=== PATIENT | female | born 1985 | race Caucasian/White ===

== ENCOUNTER 2021-05-04 09:00 | Inpatient (IN) | payer BC, OTHER ==
[2021-05-04 09:36] VITALS: BMI 36.6
[2021-05-04] MEDS ORDERED: hydrALAZINE 20 MG/ML VIAL SLOW IVP PRN ×2 (09:56→10:09)
[2021-05-04] MEDS ORDERED: Betamet Acet/Betamet Na Ph 30 MG/5 ML VIAL ONE (10:09)
[2021-05-04] MEDS ORDERED: Acetaminophen 500 MG TAB PO PRN (10:09)
[2021-05-04] MEDS ORDERED: Penicillin G Potassium 5 MILL.UNITS in Sodium Chloride 0.9% 100 ML IVPB SCH (10:15)
[2021-05-04] MEDS ORDERED: Betamet Acet/Betamet Na Ph 30 MG/5 ML VIAL IM SCH ×2 (10:15→22:20)
[2021-05-04] MEDS ORDERED: NIFEdipine 10 MG CAP PO SCH (10:30)
[2021-05-04 11:01] LABS: Hemoglobin 10.3 g/dL (12.0-15.5); Mean Corpuscular HGB CONC 30.7 g/dL (32.0-36.0); Mean Corpuscular Hemoglobin 24.6 pg (27.0-33.0); Mean Corpuscular Volume 80.1 fl (81.6-98.3); Mean Platelet Volume 10.6 fl (7.4-10.4); Platelet Count 280 10x3/uL (150-450); RBC Distribution Width 16.7 % (11.5-14.5); Red Blood Cell (RBC) Count 4.18 10x6/uL (3.90-5.03); White Blood Cell (WBC) Count 10.5 10x3/uL (3.5-10.5)
[2021-05-04] MEDS ORDERED: Morphine 10 MG/ML VIAL SLOW IVP SCH (12:00)
[2021-05-04] MEDS ORDERED: Promethazine HCl 25 MG/ML VIAL IM SCH (12:00)
[2021-05-04] MEDS ORDERED: Fentanyl 2 mcg/Bup 0.1% Cadd 100 ML ONE (12:11)
[2021-05-04] MEDS: Ondansetron PF 4 MG/2 ML Vial IVP PRN ×2 (12:52→19:58)
[2021-05-04] MEDS ORDERED: Acetaminophen 325 MG TAB PO PRN (12:55)
[2021-05-04] MEDS ORDERED: Ondansetron PF 4 MG/2 ML Vial IVP PRN (12:55)
[2021-05-04] MEDS ORDERED: Lactated Ringer's 500 ML IV PRN (12:55)
[2021-05-04] MEDS ORDERED: Hydrocerin (Eucerin) Cream 120 gm Jar TOP PRN (12:55)
[2021-05-04] MEDS ORDERED: Promethazine HCl 25 MG/ML VIAL IM PRN (12:55)
[2021-05-04] MEDS ORDERED: Naloxone HCl 0.4 mg/ml Vial IVP PRN ×2 (12:55)
[2021-05-04] MEDS ORDERED: Communication Order-Pharmacy FS SCH (13:00)
[2021-05-04] MEDS ORDERED: Fentanyl 2 mcg/Bupivacaine 0.1% Cassette 100 ML EPIDURAL SCH (13:00)
[2021-05-04] MEDS: ePHEDrine Sulfate 50 MG/10 ML VIAL SLOW IVP PRN (13:15)
[2021-05-04] MEDS: NIFEdipine 10 MG CAP PO SCH ×2 (13:15→17:32)
[2021-05-04] MEDS: Penicillin G 2.5 MILL.units 50 ML IVPB SCH ×2 (15:27→20:00)
[2021-05-04] MEDS: Fentanyl 2 mcg/Bupivacaine 0.1% Cassette 100 ML EPIDURAL SCH (21:07)
[2021-05-04] MEDS: diphenhydrAMINE 50 MG/ML VIAL IVP PRN (22:42)
[2021-05-05 00:06] LABS: SARS-CoV-2 PCR by NAA Not Detected (NotDetected)
[2021-05-05] MEDS: Penicillin G 2.5 MILL.units 50 ML IVPB SCH ×5 (00:47→14:52)
[2021-05-05] MEDS: diphenhydrAMINE 50 MG/ML VIAL IVP PRN ×2 (02:41→08:10)
[2021-05-05] MEDS: Fentanyl 2 mcg/Bupivacaine 0.1% Cassette 100 ML EPIDURAL SCH (05:37)
[2021-05-05] MEDS: Citalopram 20 MG TAB PO SCH (07:30)
[2021-05-05] MEDS: NIFEdipine 10 MG CAP PO SCH ×3 (07:30→17:22)
[2021-05-05] MEDS: Ondansetron PF 4 MG/2 ML Vial IVP PRN ×2 (08:18→16:43)
[2021-05-05] MEDS ORDERED: Butorphanol Tartrate 1 MG/ML VIAL SLOW IVP PRN (13:00)
[2021-05-05] MEDS ORDERED: NS w/ Oxytocin 30 units 500 ML ONE ×2 (14:52→18:33)
[2021-05-05] MEDS ORDERED: Carboprost 250 MCG/ML AMP ONE (15:37)
[2021-05-05] MEDS ORDERED: Misoprostol 200 MCG TAB ONE (15:37)
[2021-05-05] MEDS ORDERED: Methylergonovine 0.2 MG/ML VIAL ONE (15:38)
[2021-05-05] MEDS: ePHEDrine Sulfate 50 MG/10 ML VIAL SLOW IVP PRN (16:11)
[2021-05-05] MEDS ORDERED: Bisacodyl 10 MG SUPP PR PRN (21:19)
[2021-05-05] MEDS ORDERED: hydrALAZINE 20 MG/ML VIAL SLOW IVP PRN (21:19)
[2021-05-05] MEDS ORDERED: Boostrix 0.5 ML (Tdap) VIAL IM ONE (21:19)
[2021-05-05] MEDS ORDERED: Milk Of Magnesia 30 ML UDCUP PO PRN (21:19)
[2021-05-05] MEDS ORDERED: Docusate Calcium (SURFAK) 240 MG CAP PO SCH (21:30)
[2021-05-05] MEDS: Zolpidem Tartrate 5 MG TAB PO PRN (23:26)
[2021-05-06] MEDS: Ferrous Sulfate 325 MG TAB PO SCH ×2 (07:47→16:17)
[2021-05-06] MEDS: Penicillin G 2.5 MILL.units 50 ML IVPB SCH (07:58)
[2021-05-06] MEDS: Citalopram 20 MG TAB PO SCH (07:58)
[2021-05-06] MEDS: Ibuprofen 800 MG TAB PO SCH ×3 (08:38→22:30)
[2021-05-06] MEDS: Docusate Calcium (SURFAK) 240 MG CAP PO SCH ×2 (08:38→21:43)
[2021-05-06] MEDS: Zolpidem Tartrate 5 MG TAB PO PRN (21:45)
[2021-05-07] MEDS: Docusate Calcium (SURFAK) 240 MG CAP PO SCH (08:28)
[2021-05-07] MEDS: Ferrous Sulfate 325 MG TAB PO SCH (08:29)
[2021-05-07] MEDS: Ibuprofen 800 MG TAB PO SCH (08:29)
[2021-05-07 08:48] VITALS: BP 122/77; TEMP 98.1
== END 2021-05-07 15:20 | disposition home or self-care (01) | DRG 807 ==
LOC: CSHLD/OP 09:00 → CSHLD 10:43 → CSHPED 05-05 20:55
PROVIDERS: ADMIT Obstetrics & Gynecology; ATTEND Obstetrics & Gynecology
PROC: 10E0XZZ Delivery of Products of Conception, External Approach (ICD-10-PCS; principal; 2021-05-05)
DX: O60.14X0 Preterm labor third trimester with preterm delivery third trimester, not applicable or unspecified (principal); Z37.0 Single live birth; O99.344 Other mental disorders complicating childbirth; F41.1 Generalized anxiety disorder; O99.62 Diseases of the digestive system complicating childbirth; Z3A.34 34 weeks gestation of pregnancy; Z20.822 Contact with and (suspected) exposure to COVID-19; K21.9 Gastro-esophageal reflux disease without esophagitis
CPT/HCPCS: 85027; 86850; 86900; 86901; J0595; J0702; J1200; J2405; J2540; J2590; J3490; U0003; U0005